=== PATIENT | male | born 1990 | race American Indian/Alaskan Native ===

== ENCOUNTER 2020-11-12 14:20 | Emergency (ER) | payer OTHER ==
--- NOTE | 2020-11-12 14:51 | Emergency Department Report ---
<ESDRAS SOSA - Last Filed: 11/12/20 18:03> ED General Adult HPI - General Chief complaint: Dental/Oral Stated complaint: JAW PAIN Time Seen by Provider: 11/12/20 14:38 - Related Data Home Medications Medication Instructions Recorded Confirmed Last Taken No Known Home Medications [No 11/12/20 11/12/20 Unknown Reported Home Medications] Allergies Allergy/AdvReac Type Severity Reaction Status Date / Time No Known Allergies Allergy Verified 11/12/20 18:06 ED Past Medical Hx - Medications Home Medications: Home Medications Medication Instructions Recorded Confirmed Last Taken Type No Known Home Medications [No 11/12/20 11/12/20 Unknown History Reported Home Medications] - Jaw Reduction Consent Obtained: verbal consent Time Out Performed: Yes Pre-Treatment Medications Used: other Technique used: downward anterior tractio Reduction successful: No Patient Tolerated Procedure: well Complications: none Additional Comments: Patient's jaw appears to be quite fixed. There is no mobility with traction. He tolerated the procedure well. However there was no progress. Transfer to a facility with OM is in progress. ED Medical Decision Making - Lab Data Result diagrams: 11/12/20 17:24 11/12/20 17:24 ED Disposition Clinical Impression: Jaw dislocation Qualifiers: Encounter type: initial encounter Qualified Code(s): S03.00XA - Dislocation of jaw, unspecified side, initial encounter Disposition: DC/TX-70 ANOTHER TYPE HLTHCARE Condition: Stable <MARIA L BARCLAY - Last Filed: 11/12/20 19:14> ED General Adult HPI - General Source: patient Mode of arrival: Ambulatory Limitations: No Limitations - History of Present Illness Initial comments: 30-year-old male patient presents to the emergency department from correctional facility with complaints of nontraumatic right jaw pain starting 3 days ago after yawning. Patient has been unable to close his mouth since this occurred. No history of prior jaw dislocations. He is accompanied by law enforcement, who is unable to provide further history. Patient claims there was no preceding trauma. He endorses difficulty swallowing. Denies fever, neck stiffness, shortness of breath, ear pain, vision changes, chest pain. Denies all other complaints at this time. ED Review of Systems ROS: Stated complaint: JAW PAIN Other details as noted in HPI Other: GENERAL: Negative for fever. ENT: Positive for jaw pain. CARDIOVASCULAR: Negative for chest pain. PULMONARY: Negative for shortness of breath. GASTROINTESTINAL: Negative for abdominal pain. MUSCULOSKELETAL: Negative for back pain. NEUROLOGICAL: Negative for headache. INTEGUMENTARY: Negative for rash. ED Past Medical Hx - Past Medical History Previous Medical History?: Yes Additional medical history: hx fx neck - Social History Smoking Status: Never Smoker Substance Use Type: None ED Physical Exam - General Limitations: No Limitations - Other Other exam information: General: Awake, appropriately interactive, no acute distress. ENT: Tenderness to palpation along the distribution of the right TMJ with obvious displacement of the right mandible. Trismus is present. Airway is patent. Patient is using gauze to absorb his secretions. Neck: Supple. Full range of motion intact. Cardiovascular: Normal peripheral perfusion. Pulmonary: No respiratory distress. Patient is speaking normally without use of accessory muscles. Skin: No apparent rashes or lesions. Neurological: No facial asymmetry. Speech is clear. Follows commands. Patient is alert and oriented. Musculoskeletal: Moves all four extremities spontaneously with normal range of motion. Psych: Cooperative. Appropriate mood and affect. ED Course Vital Signs 11/12/20 11/12/20 11/12/20 14:32 18:09 18:28 Temperature 98 F Temperature [ 98.1 F Pre-Procedure] Pulse Rate 88 111 H Pulse Rate [ 80 Intra-Procedure ] Pulse Rate [ 78 Post-Procedure] Pulse Rate [Pre 79 -Procedure] Respiratory 18 16 Rate Respiratory 15 Rate [Intra- Procedure] Respiratory 16 Rate [Post- Procedure] Respiratory 16 Rate [Pre- Procedure] Blood Pressure 116/70 Blood Pressure 137/91 [Intra- Procedure] Blood Pressure 137/87 [Post-Procedure ] Blood Pressure 137/92 [Pre-Procedure] O2 Sat by Pulse 99 100 Oximetry O2 Sat by Pulse 100 Oximetry [ Intra-Procedure ] O2 Sat by Pulse 100 Oximetry [Post -Procedure] O2 Sat by Pulse 100 Oximetry [Pre- Procedure] 11/12/20 18:30 Temperature Temperature [ Pre-Procedure] Pulse Rate 110 H Pulse Rate [ Intra-Procedure ] Pulse Rate [ Post-Procedure] Pulse Rate [Pre -Procedure] Respiratory 16 Rate Respiratory Rate [Intra- Procedure] Respiratory Rate [Post- Procedure] Respiratory Rate [Pre- Procedure] Blood Pressure 166/97 Blood Pressure [Intra- Procedure] Blood Pressure [Post-Procedure ] Blood Pressure [Pre-Procedure] O2 Sat by Pulse 100 Oximetry O2 Sat by Pulse Oximetry [ Intra-Procedure ] O2 Sat by Pulse Oximetry [Post -Procedure] O2 Sat by Pulse Oximetry [Pre- Procedure] - Moderate Sedation Indications: fracture/dislocation redu Mallampati Airway Score: 1 Time of Last PO Intake: 19:00 (3 days ago) Preparation: lunchroom monitor applied, pulse oximeter, suction/airway equipment at bedside, IV secured Complications: none Interventions: suctioning Patient Tolerated Procedure: well Additional Comments: See MAR for details. EBL = 0 mL. ED Medical Decision Making - Lab Data Result diagrams: 11/12/20 17:24 11/12/20 17:24 - Medical Decision Making Differential diagnosis including but not limited to: jaw fracture, jaw dislocation, [place] injury, Guzman's angina Patient presents emergency department with complaints of nontraumatic jaw pain. He is exhibiting trismus on exam. Although patient states he was not involved in an altercation, he is accompanied by law enforcement from [place]-term. CT imaging was obtained to assess for other injuries. Imaging confirmed right anterior jaw dislocation. Multiple attempts to reduce dislocated jaw with procedural sedation were unsuccessful; dislocation occurred three days prior to patient presentation. Patient tolerated procedural sedation well. See procedure note for details. Oral maxillofacial surgery is unavailable for consultation at this facility. Case discussed with Dr. Bustos, OMFS specialist at [facility] recommended transferring patient to [place] [facility] for further evaluation. Patient expressed understanding and is agreeable to plan of care. Ground transportation arranged. Case discussed with Dr. Sosa, attending emergency physician, who personally evaluated the patient and agrees with diagnostic work-up/plan of care. Critical care attestation.: If time is entered above; I have spent that time in minutes in the direct care of this critically ill patient, excluding procedure time. ED Disposition Is pt being admited?: No Does the pt Need Aspirin: No Time of Disposition: 18:40
--- NOTE | 2020-11-12 16:24 | Cat Scan Report ---
CT maxillofacial without contrast INDICATION : right jaw pain + trismus; mandibular dislocation. TECHNIQUE: Axial imaging performed through the face with reconstructed images also reviewed. All CT scans at this location are performed using CT dose reduction for ALARA by means of automated exposur e control. COMPARISON: None FINDINGS: The mandible is dislocated anteriorly at the level of the right TMJ. No underlying fractur e identified. There is mild surrounding soft tissue swelling. No other acute abnormality identified. No incidental acute intracranial abnormality. The orbits are normal. The sinuses and mastoid air cell s are clear. IMPRESSION: Anterior jaw dislocation on the right. Signer Name: Vik Elizabeth MD Signed: 11/12/2020 4:19 PM Workstation Name: [id number]
[2020-11-12] MEDS ORDERED: SODIUM CHLORIDE 0.9% 1000 ML 1,000 ML IV ONE (17:17)
[2020-11-12] MEDS ORDERED: propofoL 200 MG/20 ML VIAL IV ONE (17:35)
[2020-11-12 17:42] LABS: Basophils # (Auto) 0.1 K/mm3 (0.0-0.1); Basophils % (Auto) 0.5 % (0.0-1.8); Eosinophils # (Auto) 0.1 K/mm3 (0.0-0.4); Eosinophils % (Auto) 0.8 % (0.0-4.3); Hematocrit 45.4 % (35.5-45.6); Hemoglobin 15.1 gm/dl (11.8-15.2); Lymphocytes # (Auto) 2.3 K/mm3 (1.2-5.4); Lymphocytes % (Auto) 22.6 % (13.4-35.0); Mean Corpuscular HGB Conc 33 % (32-34); Mean Corpuscular Volume 89 fl (84-94); Monocytes % (Auto) 9.5 % (0.0-7.3); Platelet Count 229 K/mm3 (140-440); Red Blood Count 5.08 M/mm3 (3.65-5.03); Red Cell Distribution Width 13.7 % (13.2-15.2)
[2020-11-12 17:59] LABS: BUN/Creatinine Ratio 17; Blood Urea Nitrogen 15 mg/dL (9-20); Calcium 9.8 mg/dL (8.4-10.2); Hemolysis Index 26
[2020-11-12 20:03] VITALS: BP 134/86
== END 2020-11-12 20:03 | disposition other institution (70) ==
LOC: ED 14:20
DX: S03.01XA Dislocation of jaw, right side, initial encounter (principal); X58.XXXA Exposure to other specified factors, initial encounter; Y93.89 Activity, other specified; Y92.89 Other specified places as the place of occurrence of the external cause; Y99.8 Other external cause status
CPT/HCPCS: 21480; 36415; 70486; 80048; 85025; 96360; 96361; 99285; J2704; J7030